=== PATIENT | female | born 1995 | race Caucasian/White ===

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

== ENCOUNTER 2017-01-02 14:06 | Emergency (ER) | payer OTHER ==
[~2017-01-02] VITALS: Ht 162.6 cm; Wt 72.3 kg
[~2017-01-02 14:06] MED LIST changes: +PROAIR HFA0.09 MG/AC IH; +RT SPIRIVA18 MCG IH; +ZITHROMAX 250M250 MG PO
[2017-01-02 14:09] VITALS: TEMP 98.4
[2017-01-02] MEDS ORDERED: PREDNISONE20 MG PO ×2 (16:22→16:40)
[2017-01-02 16:41] VITALS: BP 113/70; PULSE 115
== END 2017-01-02 16:42 | disposition home or self-care (01) ==
LOC: COL.ER 14:06
DX: J45.901 Unspecified asthma with (acute) exacerbation (principal)
CPT/HCPCS: J7512

== ENCOUNTER 2017-01-18 15:29 | Emergency (ER) | payer OTHER ==
[~2017-01-18] VITALS: Ht 160 cm; Wt 77.3 kg
[2017-01-18 15:33] VITALS: TEMP 97.9
[2017-01-18] MEDS ORDERED: BENADRYL25 M2 PO (15:39)
[2017-01-18 16:07] LABS: BASO # 0.1 (0.0-0.2); BASO % 0.4 % (0.0-2.0); EOS # 0.7 (0.0-0.7); EOS % 4.9 % (0-4.0); GRAN # 9.9 (1.4-6.5); GRAN % 70.6 % (42.2-75.2); HEMATOCRIT 40.4 % (35.0-45.0); HEMOGLOBIN 13.2 g/dl (12.0-15.0); LYMPH # 2.1 (1.2-3.4); LYMPH % 14.8 % (20.0-51.0); MEAN CELL VOLUME 82 fl (80.0-95.0); MEAN CORPUSCULAR HEMOGLOBIN 27 pg (26.0-32.0); MEAN CORPUSCULAR HGB CONC 33 g/dl (33.0-37.0); MEAN PLATELET VOLUME 10.4 fl (7.4-10.4); MONO # 1.3 (0.1-0.6); MONO % 8.9 % (1.7-9.3); PLATELET COUNT 229 K/mm3 (130-400); RED BLOOD COUNT 4.92 M/mm3 (4.10-5.30); REDCELL DISTRIBUTION WIDTH-CV 15.3 % (11.5-14.5)
[2017-01-18 16:16] LABS: ADJUSTED CALCIUM 9.4 mg/dL (8.4-10.2); ALBUMIN 3.9 gm/dL (3.5-5.0); CALCIUM 9.3 mg/dL (8.4-10.2); CREATININE, serum 0.71 mg/dL (0.52-1.25); TOTAL PROTEIN 6.4 gm/dL (6.4-8.2)
[2017-01-18 17:00] LABS: PH 5 (5-8); SQUAMOUS EPITHELIAL 0-2 /hpf; URINE APPEARANCE Clear; URINE BACTERIA Rare /hpf; URINE BILIRUBIN Negative (NEGATIVE); URINE BLOOD Negative (NEGATIVE); URINE COLOR Yellow; URINE GLUCOSE Negative (NEGATIVE); URINE KETONE Negative (NEGATIVE); URINE RBC 0-2 /hpf; URINE UROBILINOGEN Negative (NEGATIVE); URINE WBC 0-2 /hpf
[2017-01-18] MEDS ORDERED: ZITHROMAX500 M2 PO (19:20)
[2017-01-18] MEDS ORDERED: PREDNISONE20 MG PO (19:20)
[2017-01-18 19:30] VITALS: BP 121/68; PULSE 119
== END 2017-01-18 19:34 | disposition home or self-care (01) ==
LOC: COL.ER 15:29
PROVIDERS: Emergency Medicine
DX: J45.901 Unspecified asthma with (acute) exacerbation (principal); J18.9 Pneumonia, unspecified organism; Z87.891 Personal history of nicotine dependence
CPT/HCPCS: G0463; J0696; J2930; J3105; J3475; J7030

== ENCOUNTER 2017-01-24 08:45 | Inpatient (IN) | payer OTHER ==
[~2017-01-24] VITALS: Ht 162.6 cm; Wt 79.6 kg
[~2017-01-24 08:45] MED LIST changes: +BENADRYL25 M2 PO; +ZITHROMAX500 M2 PO
[2017-01-24 09:45] LABS: BASO # 0.1 (0.0-0.2); BASO % 0.4 % (0.0-2.0); EOS # 1.2 (0.0-0.7); GRAN # 11.5 (1.4-6.5); GRAN % 67.3 % (42.2-75.2); HEMATOCRIT 43.4 % (35.0-45.0); HEMOGLOBIN 14.4 g/dl (12.0-15.0); LYMPH % 17.7 % (20.0-51.0); MEAN CELL VOLUME 82 fl (80.0-95.0); MEAN CORPUSCULAR HEMOGLOBIN 27 pg (26.0-32.0); MEAN CORPUSCULAR HGB CONC 33 g/dl (33.0-37.0); MEAN PLATELET VOLUME 10.5 fl (7.4-10.4); MONO # 1.2 (0.1-0.6); MONO % 7.2 % (1.7-9.3); PLATELET COUNT 292 K/mm3 (130-400); RED BLOOD COUNT 5.27 M/mm3 (4.10-5.30); REDCELL DISTRIBUTION WIDTH-CV 15.1 % (11.5-14.5); WHITE BLOOD COUNT 17.2 K/mm3 (4.8-10.8)
[2017-01-24 09:55] LABS: ADJUSTED CALCIUM 9.3 mg/dL (8.4-10.2); ALBUMIN 4.2 gm/dL (3.5-5.0); BILIRUBIN,TOTAL 0.9 mg/dL (0.0-1.0); CALCIUM 9.5 mg/dL (8.4-10.2); CREATININE, serum 0.73 mg/dL (0.52-1.25); POTASSIUM 4.4 mmol/L (3.4-5.0); TOTAL PROTEIN 7.2 gm/dL (6.4-8.2)
[2017-01-24] MEDS ORDERED: PRILOSEC10 MG PO (12:21)
[2017-01-24 13:40] VITALS: BP 116/60; PULSE 104; TEMP 98
[2017-01-24 16:00] VITALS: BP 121/50; PULSE 110; TEMP 98.6
[2017-01-24 19:56] VITALS: BP 136/64; PULSE 122; TEMP 98.4
[2017-01-25] VITALS (7 sets, daily range): BP systolic 103–131; BP diastolic 44–64; PULSE 103–131; TEMP 97–98.3
[2017-01-25 06:47] LABS: HEMATOCRIT 39.6 % (35.0-45.0); HEMOGLOBIN 13.2 g/dl (12.0-15.0); MEAN CELL VOLUME 82 fl (80.0-95.0); MEAN CORPUSCULAR HEMOGLOBIN 27 pg (26.0-32.0); MEAN CORPUSCULAR HGB CONC 33 g/dl (33.0-37.0); MEAN PLATELET VOLUME 10.9 fl (7.4-10.4); PLATELET COUNT 257 K/mm3 (130-400); RED BLOOD COUNT 4.85 M/mm3 (4.10-5.30); WHITE BLOOD COUNT 15.2 K/mm3 (4.8-10.8)
[2017-01-25 06:49] LABS: ADD PATHOLOGY DIFF REVIEW NO
[2017-01-25 06:56] LABS: CALCIUM 9.7 mg/dL (8.4-10.2); CREATININE, serum 0.55 mg/dL (0.52-1.25)
[2017-01-25 07:10] LABS: BAND 6 % (0-10); NEUTROPHILS 86 % (42.0-75.2); PLATELET ESTIMATE NORMAL (NORMAL); TOTAL CELLS COUNTED 100
[2017-01-26 03:33] VITALS: BP 118/52; PULSE 110; TEMP 97.9
[2017-01-26 07:44] VITALS: BP 116/40; PULSE 123; TEMP 97.9
[2017-01-26 10:58] VITALS: BP 123/52; PULSE 128; TEMP 98.3
[2017-01-26] MEDS ORDERED: CLARITIN 1010 MG/TAB PO (14:06)
[2017-01-26] MEDS ORDERED: PREDNISONE20 MG PO (14:26)
[2017-01-26 16:59] VITALS: BP 123/52; PULSE 128; TEMP 98.3
== END 2017-01-26 15:30 | disposition home or self-care (01) | DRG 195 ==
LOC: COL.ER 08:45 → MEDICAL 11:14
PROVIDERS: Emergency Medicine; Physician Assistant
DX: J18.9 Pneumonia, unspecified organism (principal); R09.02 Hypoxemia; F41.9 Anxiety disorder, unspecified; Z87.891 Personal history of nicotine dependence
CPT/HCPCS: 99223-AI; 99232-AI; 99239; J1650; J2920; J2930; J3475; J7030

== ENCOUNTER 2017-05-10 13:47 | Inpatient (IN) | payer OTHER ==
[2017-05-10] VITALS (475 sets, daily range): BP systolic 124–196; BP diastolic 66–100; PULSE 113–158; TEMP 98–99.4; O2SAT 75–100
[~2017-05-10] VITALS: Ht 160 cm; Wt 88.5 kg
[~2017-05-10 13:47] MED LIST changes: +CLARITIN 1010 MG/TAB PO; +PRILOSEC10 MG PO
[2017-05-10] MEDS ORDERED: ZYRTEC 10MG10 MG PO (16:15)
[2017-05-10] MEDS ORDERED: IPRATROPIUM BROM3 M1 IH (16:16)
[2017-05-10] MEDS ORDERED: CELEXA 20MG20 MG/TAB PO (16:17)
[2017-05-10] MEDS ORDERED: ZANTAC 150MG T150 MG PO (16:18)
[2017-05-10] MEDS ORDERED: ZITHROMAX 250M250 MG PO (16:19)
[2017-05-10 17:07] LABS: INFLUENZA A NEGATIVE; INFLUENZA B NEGATIVE
[2017-05-10 17:42] LABS: ARTERIAL BLD GAS O2 SATURATION 86.8 % (92-100); ARTERIAL BLOOD GAS HCO3 18.1 meq/L (22-26); ARTERIAL BLOOD GAS PHT 7.41 C (7.35-7.45); ARTERIAL BLOOD GAS pH 7.41 (7.35-7.45); OXYHEMOGLOBIN 86.3 %
[2017-05-10 17:43] LABS: ATS? YES
[2017-05-10 22:28] LABS: ARTERIAL BLD GAS O2 SATURATION 96.9 % (92-100); ARTERIAL BLOOD GAS BASE EXCESS -6.5 (-2-2); ARTERIAL BLOOD GAS HCO3 21.4 meq/L (22-26); ARTERIAL BLOOD GAS PO2 107.7 mmHg (80-100); ARTERIAL BLOOD GAS pH 7.23 (7.35-7.45); OXYHEMOGLOBIN 95.9 %
[2017-05-10 22:29] LABS: ABG VENTILATOR TIDAL VOLUME 450 mL; ATS? NO
[2017-05-10 22:30] LABS: HEMATOCRIT 39.3 % (35.0-45.0); HEMOGLOBIN 13.1 g/dl (12.0-15.0); MEAN CELL VOLUME 84 fl (80.0-95.0); MEAN CORPUSCULAR HEMOGLOBIN 28 pg (26.0-32.0); MEAN CORPUSCULAR HGB CONC 33 g/dl (33.0-37.0); PLATELET COUNT 228 K/mm3 (130-400); RED BLOOD COUNT 4.66 M/mm3 (4.10-5.30)
[2017-05-10 22:33] LABS: ADD PATHOLOGY DIFF REVIEW NO; WHITE BLOOD COUNT 21.8 K/mm3 (4.8-10.8)
[2017-05-10 22:44] LABS: ALBUMIN 4.1 gm/dL (3.5-5.0); BILIRUBIN,TOTAL 0.5 mg/dL (0.0-1.0); CALCIUM 9.1 mg/dL (8.4-10.2); CREATININE, serum 0.66 mg/dL (0.52-1.25); MAGNESIUM 1.9 mg/dL (1.6-2.3); POTASSIUM 4.9 mmol/L (3.4-5.0); TOTAL PROTEIN 6.9 gm/dL (6.4-8.2)
[2017-05-10 22:51] LABS: INR 1.1 (0.8-3.0); PROTHROMBIN TIME 12.1 SECONDS (9.7-12.8)
[2017-05-10 22:56] LABS: BAND 8 % (0-10); LYMPHOCYTE 4 % (20.0-51.0); NEUTROPHILS 85 % (42.0-75.2); TOTAL CELLS COUNTED 100
[2017-05-10 22:57] LABS: PLATELET ESTIMATE NORMAL (NORMAL)
[2017-05-11] VITALS (1381 sets, daily range): BP systolic 112–139; BP diastolic 61–96; PULSE 91–120; TEMP 97–98.9; O2SAT 86–99
[2017-05-11 01:08] LABS: COLLECTION METHOD CLEAN CATCH
[2017-05-11 01:12] LABS: ABG VENTILATOR TIDAL VOLUME 450 mL; ARTERIAL BLD GAS O2 SATURATION 96.8 % (92-100); ARTERIAL BLD GAS TCO2 CT 19.3; ARTERIAL BLOOD GAS BASE EXCESS -8.8 (-2-2); ARTERIAL BLOOD GAS PO2 105.2 mmHg (80-100); ARTERIAL BLOOD GAS pH 7.25 (7.35-7.45); ATS? NO; OXYHEMOGLOBIN 95.8 %
[2017-05-11 01:15] LABS: AMORPHOUS CRYSTAL Present /uL; HYALINE CAST >12 /lpf; MUCOUS Present /lpf; PH 5 (5-8); URINE APPEARANCE Turbid; URINE BACTERIA None Seen /hpf; URINE BILIRUBIN Negative (NEGATIVE); URINE BLOOD Negative (NEGATIVE); URINE COLOR Yellow; URINE GLUCOSE 1+ (NEGATIVE); URINE KETONE Trace (NEGATIVE); URINE LEUKOCYTE ESTERASE Negative (NEGATIVE); URINE PROTEIN(semi-quant) 2+ (NEGATIVE); URINE UROBILINOGEN Negative (NEGATIVE); URINE WBC 0-2 /hpf
[2017-05-11 03:14] LABS: HEMATOCRIT 38.9 % (35.0-45.0); HEMOGLOBIN 12.5 g/dl (12.0-15.0); MEAN CELL VOLUME 86 fl (80.0-95.0); MEAN CORPUSCULAR HEMOGLOBIN 28 pg (26.0-32.0); MEAN CORPUSCULAR HGB CONC 32 g/dl (33.0-37.0); MEAN PLATELET VOLUME 10.8 fl (7.4-10.4); PLATELET COUNT 223 K/mm3 (130-400); RED BLOOD COUNT 4.55 M/mm3 (4.10-5.30); WHITE BLOOD COUNT 19.7 K/mm3 (4.8-10.8)
[2017-05-11 03:20] LABS: ADD PATHOLOGY DIFF REVIEW NO
[2017-05-11 03:25] LABS: CREATININE, serum 0.69 mg/dL (0.52-1.25); PHOSPHOROUS 3.8 mg/dL (2.5-4.5); POTASSIUM 4.7 mmol/L (3.4-5.0)
[2017-05-11 03:34] LABS: ARTERIAL BLD GAS O2 SATURATION 95.4 % (92-100); ARTERIAL BLD GAS TCO2 CT 20.4; ARTERIAL BLOOD GAS HCO3 19.1 meq/L (22-26); ARTERIAL BLOOD GAS PO2 83.9 mmHg (80-100); ARTERIAL BLOOD GAS pH 7.29 (7.35-7.45); ATS? NO; OXYHEMOGLOBIN 94.6 %
[2017-05-11 03:35] LABS: ABG VENTILATOR TIDAL VOLUME 400 mL
[2017-05-11 03:41] LABS: ANISOCYTOSIS 1+; BAND 17 % (0-10); LYMPHOCYTE 1 % (20.0-51.0); NEUTROPHILS 79 % (42.0-75.2); PLATELET ESTIMATE NORMAL (NORMAL); TOTAL CELLS COUNTED 100
[2017-05-11 05:32] LABS: ARTERIAL BLD GAS O2 SATURATION 94.5 % (92-100); ARTERIAL BLD GAS TCO2 CT 19.1; ARTERIAL BLOOD GAS PO2 80.4 mmHg (80-100); ARTERIAL BLOOD GAS pH 7.29 (7.35-7.45); OXYHEMOGLOBIN 93.6 %
[2017-05-11 05:33] LABS: ABG VENTILATOR TIDAL VOLUME 400 mL; ATS? NO
[2017-05-11 12:38] LABS: AMPHETAMINE URINE NEGATIVE; BARBITURATES URINE NEGATIVE; BENZODIAZEPINES URINE POSITIVE; BUPRENORPHINE URINE NEGATIVE; METHADONE URINE NEGATIVE; OPIATES URINE NEGATIVE; OXYCODONE URINE NEGATIVE; PHENCYCLIDINE URINE NEGATIVE; PROPOXYPHENE URINE NEGATIVE; THC CANNABINOIDS URINE NEGATIVE; TRICYCLIC ANTIDEPRESS URINE NEGATIVE
[2017-05-11 17:34] LABS: ARTERIAL BLD GAS O2 SATURATION 98.3 % (92-100); ARTERIAL BLOOD GAS BASE EXCESS -4.4 (-2-2); ARTERIAL BLOOD GAS HCO3 19.9 meq/L (22-26); ARTERIAL BLOOD GAS PO2 135.5 mmHg (80-100); ARTERIAL BLOOD GAS pH 7.39 (7.35-7.45); OXYHEMOGLOBIN 97.3 %
[2017-05-11 17:35] LABS: ALLEN TEST NO; ATS? NO
[2017-05-11 17:36] LABS: ABG VENTILATOR TIDAL VOLUME 450 mL
[2017-05-12] VITALS (1315 sets, daily range): BP systolic 109–168; BP diastolic 64–98; PULSE 74–138; TEMP 97.4–98.9; O2SAT 78–99
[2017-05-12 05:30] LABS: ARTERIAL BLD GAS O2 SATURATION 97.6 % (92-100); ARTERIAL BLD GAS TCO2 CT 22.9; ARTERIAL BLOOD GAS BASE EXCESS -0.9 (-2-2); ARTERIAL BLOOD GAS PO2 99.5 mmHg (80-100); ARTERIAL BLOOD GAS pH 7.48 (7.35-7.45); OXYHEMOGLOBIN 96.6 %
[2017-05-12 05:31] LABS: ABG VENTILATOR TIDAL VOLUME 450 mL; ATS? NO
[2017-05-12 05:43] LABS: BASO % 0.1 % (0.0-2.0); GRAN # 11.2 (1.4-6.5); GRAN % 90.3 % (42.2-75.2); LYMPH # 0.5 (1.2-3.4); LYMPH % 4.2 % (20.0-51.0); MEAN CELL VOLUME 86 fl (80.0-95.0); MEAN CORPUSCULAR HGB CONC 32 g/dl (33.0-37.0); MEAN PLATELET VOLUME 11.3 fl (7.4-10.4); MONO # 0.6 (0.1-0.6); MONO % 4.8 % (1.7-9.3); PLATELET COUNT 176 K/mm3 (130-400); WHITE BLOOD COUNT 12.4 K/mm3 (4.8-10.8)
[2017-05-12 05:45] LABS: HEMATOCRIT 32.6 % (35.0-45.0); HEMOGLOBIN 10.5 g/dl (12.0-15.0); MEAN CORPUSCULAR HEMOGLOBIN 28 pg (26.0-32.0)
[2017-05-12 05:54] LABS: CREATININE, serum 0.57 mg/dL (0.52-1.25); MAGNESIUM 2.3 mg/dL (1.6-2.3); PHOSPHOROUS 1.9 mg/dL (2.5-4.5); POTASSIUM 3.8 mmol/L (3.4-5.0)
[2017-05-12 13:55] LABS: ARTERIAL BLD GAS TCO2 CT 23.6; ARTERIAL BLOOD GAS BASE EXCESS -0.9 (-2-2); ARTERIAL BLOOD GAS HCO3 22.6 meq/L (22-26); ARTERIAL BLOOD GAS PHT 7.45 C (7.35-7.45); ARTERIAL BLOOD GAS pH 7.45 (7.35-7.45)
[2017-05-12 13:56] LABS: ATS? NO
[2017-05-13] VITALS (1357 sets, daily range): BP systolic 112–143; BP diastolic 68–96; PULSE 67–101; TEMP 97.7–99.3; O2SAT 82–100
[2017-05-13 04:42] LABS: ARTERIAL BLD GAS O2 SATURATION 96.5 % (92-100); ARTERIAL BLD GAS TCO2 CT 22.8; ARTERIAL BLOOD GAS BASE EXCESS -1.7 (-2-2); ARTERIAL BLOOD GAS HCO3 21.8 meq/L (22-26); ARTERIAL BLOOD GAS PHT 7.44 C (7.35-7.45); ARTERIAL BLOOD GAS PO2 90.9 mmHg (80-100); ARTERIAL BLOOD GAS PO2T 90.9 (80-100); ARTERIAL BLOOD GAS pH 7.44 (7.35-7.45); OXYHEMOGLOBIN 95.7 %
[2017-05-13 04:45] LABS: ATS? NO
[2017-05-13 05:56] LABS: BASO % 0.1 % (0.0-2.0); GRAN # 10.5 (1.4-6.5); GRAN % 88.4 % (42.2-75.2); LYMPH # 0.6 (1.2-3.4); MEAN CELL VOLUME 86 fl (80.0-95.0); MEAN CORPUSCULAR HGB CONC 32 g/dl (33.0-37.0); MONO # 0.7 (0.1-0.6); PLATELET COUNT 186 K/mm3 (130-400); WHITE BLOOD COUNT 11.9 K/mm3 (4.8-10.8)
[2017-05-13 06:06] LABS: HEMATOCRIT 32.8 % (35.0-45.0); HEMOGLOBIN 10.5 g/dl (12.0-15.0); MEAN CORPUSCULAR HEMOGLOBIN 28 pg (26.0-32.0)
[2017-05-13 06:07] LABS: CALCIUM 8.8 mg/dL (8.4-10.2); CREATININE, serum 0.6 mg/dL (0.52-1.25); MAGNESIUM 2.4 mg/dL (1.6-2.3); PHOSPHOROUS 2.8 mg/dL (2.5-4.5); POTASSIUM 3.9 mmol/L (3.4-5.0)
[2017-05-13 11:50] LABS: ARTERIAL BLD GAS O2 SATURATION 95.6 % (92-100); ARTERIAL BLD GAS TCO2 CT 25.1; ARTERIAL BLOOD GAS BASE EXCESS 0.4 (-2-2); ARTERIAL BLOOD GAS PHT 7.45 C (7.35-7.45); ARTERIAL BLOOD GAS PO2 79.3 mmHg (80-100); ARTERIAL BLOOD GAS PO2T 79.3 (80-100); ARTERIAL BLOOD GAS pH 7.45 (7.35-7.45); OXYHEMOGLOBIN 94.7 %
[2017-05-13 11:51] LABS: ATS? YES
[2017-05-14] VITALS (623 sets, daily range): BP systolic 121–157; BP diastolic 54–96; PULSE 51–98; TEMP 97.2–99; O2SAT 72–100
[2017-05-14 06:27] LABS: CALCIUM 9.1 mg/dL (8.4-10.2); CREATININE, serum 0.53 mg/dL (0.52-1.25); MAGNESIUM 2.3 mg/dL (1.6-2.3); POTASSIUM 3.9 mmol/L (3.4-5.0)
[2017-05-15 01:06] VITALS: BP 106/61; PULSE 56; TEMP 98.1
[2017-05-15 04:06] VITALS: BP 120/51; PULSE 54; TEMP 97.7
[2017-05-15 08:05] VITALS: BP 111/61; PULSE 71; TEMP 98.3
[2017-05-15 12:13] VITALS: BP 142/97; BP 154/97; PULSE 62; PULSE 66; TEMP 98.5
[2017-05-15] MEDS ORDERED: PREDNISONE10 MG PO (13:47)
== END 2017-05-15 15:05 | disposition home or self-care (01) | DRG 208 ==
LOC: ICU 13:47 → MEDICAL 05-14 14:00
PROVIDERS: Internal Medicine; Internal Medicine Pulmonary Disease; Nurse Practitioner Family
PROC: 0BH17EZ Insertion of Endotracheal Airway into Trachea, Via Natural or Artificial Opening (ICD-10-PCS; principal; 2017-05-10)
PROC: 5A1945Z Respiratory Ventilation, 24-96 Consecutive Hours (ICD-10-PCS; 2017-05-10)
PROC: 0W9930Z Drainage of Right Pleural Cavity with Drainage Device, Percutaneous Approach (ICD-10-PCS; 2017-05-10)
DX: J96.01 Acute respiratory failure with hypoxia (principal); J45.901 Unspecified asthma with (acute) exacerbation; F05 Delirium due to known physiological condition; J93.83 Other pneumothorax; F41.8 Other specified anxiety disorders; Z77.22 Contact with and (suspected) exposure to environmental tobacco smoke (acute) (chronic); B97.89 Other viral agents as the cause of diseases classified elsewhere
CPT/HCPCS: 90791-AI; 99223-AI; 99233-AI; 99239; C9113; J0456; J1644; J1650; J1940; J2060; J2250; J2270; J2704; J2920; J3010; J7030; J7050; J7120

== ENCOUNTER 2017-08-31 05:44 | Emergency (ER) | payer SELFPAY ==
[~2017-08-31] VITALS: Ht 162.6 cm; Wt 79.5 kg
[2017-08-31 05:50] VITALS: BP 113/77; PULSE 137; TEMP 97.3
[2017-08-31] MEDS ORDERED: PREDNISONE20 MG PO (06:55)
== END 2017-08-31 07:00 | disposition home or self-care (01) ==
LOC: COL.ER 05:44
DX: J45.901 Unspecified asthma with (acute) exacerbation (principal); F30.9 Manic episode, unspecified
CPT/HCPCS: J7512

== ENCOUNTER → 2017-08-31 | Outpatient (CLI) | payer SELFPAY ==
[~2017-08-31] MED LIST changes: +CELEXA 20MG20 MG/TAB PO; +IPRATROPIUM BROM3 M1 IH; +ZANTAC 150MG T150 MG PO
== END ==
LOC: LDRO 05:31
DX: Z04.41 Encounter for examination and observation following alleged adult rape (principal)
CPT/HCPCS: J0696

== ENCOUNTER → 2017-08-31 | Outpatient (REF) | LOC: LDRO 05:33 | DX: Z01.89 Encounter for other specified special examinations (principal) ==

== ENCOUNTER 2021-06-26 17:38 | Emergency (ER) | payer MEDICAID ==
[~2021-06-26] VITALS: Ht 162.6 cm; Wt 54.5 kg
[2021-06-26 18:17] VITALS: TEMP 98.2
[2021-06-26 20:08] VITALS: BP 110/78; PULSE 96
== END 2021-06-26 20:08 | disposition home or self-care (01) ==
LOC: COL.ER 17:38
DX: U07.1 COVID-19 (principal); J45.909 Unspecified asthma, uncomplicated; Z79.899 Other long term (current) drug therapy; Z79.52 Long term (current) use of systemic steroids

== ENCOUNTER 2021-10-22 15:33 | Emergency (ER) | payer MEDICAID ==
[~2021-10-22] VITALS: Ht 160 cm; Wt 60.9 kg
[2021-10-22 15:50] LABS: BASO # 0.1 K/mm3 (0.0-0.2); BASO % 0.4 % (0.0-2.0); EOS # 0.8 K/mm3 (0.0-0.7); GRAN # 10.1 K/mm3 (1.4-6.5); GRAN % 75.2 % (42.2-75.2); HEMATOCRIT 41.6 % (37.0-47.0); HEMOGLOBIN 14.1 g/dl (12.5-16.0); LYMPH # 1.3 K/mm3 (1.2-3.4); LYMPH % 9.8 % (20.0-51.0); MEAN CELL VOLUME 81 fl (80.0-100.0); MEAN CORPUSCULAR HEMOGLOBIN 27 pg (27-31); MEAN CORPUSCULAR HGB CONC 34 g/dl (33.0-37.0); MONO # 1.1 K/mm3 (0.1-0.6); MONO % 8.4 % (1.7-9.3); PLATELET COUNT 220 K/mm3 (130-400); RED BLOOD COUNT 5.16 M/mm3 (4.10-5.30); REDCELL DISTRIBUTION WIDTH-CV 14.4 % (11.5-14.5)
[2021-10-22 16:06] LABS: ALANINE AMINOTRANSFERASE 9 U/L (0-55); ALBUMIN 4.2 gm/dL (3.5-5.0); ALKALINE PHOSPHATASE 53 U/L (40-150); ANION GAP 12 mmol/L (7-16); AST,SGOT 15 U/L (5-34); BILIRUBIN,TOTAL 0.8 mg/dL (0.2-1.2); BLOOD UREA NITROGEN 13 mg/dL (7-19); CARBON DIOXIDE 17 mmol/L (22-29); CHLORIDE 113 mmol/L (98-107); CREATININE, serum 0.82 mg/dL (0.57-1.11); GLUCOSE 98 mg/dL (70-99); POTASSIUM 4.2 mmol/L (3.5-4.5); SODIUM 142 mmol/L (136-145); TOTAL PROTEIN 6.8 gm/dL (6.2-8.1)
[2021-10-22 16:14] LABS: TROPONIN-I < 0.010 ng/mL (0.00-0.033)
[2021-10-22 16:31] VITALS: TEMP 97.2
[2021-10-22 20:35] VITALS: BP 112/60; PULSE 130
== END 2021-10-22 20:35 | disposition short-term general hospital (02) ==
LOC: COL.ER 15:33
PROVIDERS: Emergency Medicine
DX: J45.902 Unspecified asthma with status asthmaticus (principal); F17.290 Nicotine dependence, other tobacco product, uncomplicated; Z20.822 Contact with and (suspected) exposure to COVID-19; Z91.040 Latex allergy status
CPT/HCPCS: J0330; J1885; J2060; J2250; J2704; J3010; J3475; J7120; Q9967

== ENCOUNTER 2021-11-22 11:35 | Observation (INO) | payer MEDICAID ==
[2021-11-22] MEDS ORDERED: PROVENTIL0.09 MG/A1 IH (12:23)
[2021-11-22] MEDS ORDERED: SINGULAIR 110 MG/TAB PO (12:28)
[2021-11-22] MEDS ORDERED: ZOLOFT 50MG50 MG PO (12:29)
[2021-11-22 12:30] VITALS: BP 122/71; PULSE 111; TEMP 98.2
[2021-11-22] MEDS ORDERED: RT SPIRIVA18 MCG IH (12:30)
--- NOTE | 2021-11-22 12:30 | NUR ---
THE PATIENT ARRIVED FROM [facility] ER ON 2L O2 SATURATING AT 97% REDUCED HER TO 1L TO WHICH SHE IS SATURATING 95%. MEDICATION RECONCILLIATION IS COMPLETED AND CALLED THE PHYSICIAN TO NOTIFY OF ARRIVAL. THE PATIENT STATES THAT SHE FEELS MUCH BETTER AFTER SHE COUGHED UP A CHUNK OF PHLEGM. NO OTHER CONCERNS.
[2021-11-22] MEDS ORDERED: BENADRYL25 M2 PO (12:31)
[2021-11-22] MEDS ORDERED: MOTRIN 600600 MG/TAB PO (12:35)
[2021-11-22] MEDS ORDERED: TYLENOL 325MG325 MG PO (12:36)
[2021-11-22] MEDS ORDERED: PREDNISONE20 MG PO (14:35)
== END 2021-11-22 16:30 | disposition home or self-care (01) ==
LOC: MEDICAL 12:01
PROVIDERS: ADMIT Student in an Organized Health Care Education/Training Program
DX: J45.901 Unspecified asthma with (acute) exacerbation (principal); R09.02 Hypoxemia; R00.0 Tachycardia, unspecified; Z79.899 Other long term (current) drug therapy
CPT/HCPCS: G0378

== ENCOUNTER 2023-06-29 00:57 | Emergency (ER) | payer MEDICAID ==
[~2023-06-29] VITALS: Ht 152.4 cm; Wt 68.2 kg
[~2023-06-29 00:57] MED LIST changes: +DULERA1 AR1 IH; +LATUDA40 MG PO; +LEXAPRO 10MG10 MG PO; +LEXAPRO 5MG5 MG PO; +MOTRIN 600600 MG/TAB PO; +MOTRIN 800800 MG/TAB PO; +NATURAL IRON65 MG PO; +OXYGEN; +PERCOCET 325 MG1 TA2 PO; +PROVENTIL0.09 MG/A1 IH; +TAMIFLU30 MG PO; +TYLENOL 325MG325 MG PO; +ZOLOFT 50MG50 MG PO
[2023-06-29 00:59] VITALS: TEMP 97.9
[2023-06-29] MEDS ORDERED: Magnesium Sulfate 4% 50 ML IV ONE (01:15)
[2023-06-29] MEDS ORDERED: Ondansetron 4 MG/2 ML VIAL IV ONE (01:21)
[2023-06-29 01:38] LABS: BASO % 0.2 % (0.0-2.0); EOS % 0.1 % (0.0-4.0); GRAN # 5.5 K/mm3 (1.4-6.5); GRAN % 68.1 % (42.2-75.2); HEMATOCRIT 39.5 % (37.0-47.0); HEMOGLOBIN 12.9 g/dl (12.5-16.0); LYMPH # 1.7 K/mm3 (1.2-3.4); LYMPH % 21.2 % (20.0-51.0); MEAN CELL VOLUME 83 fl (80.0-100.0); MEAN CORPUSCULAR HEMOGLOBIN 27 pg (27-31); MEAN CORPUSCULAR HGB CONC 33 g/dl (33.0-37.0); MEAN PLATELET VOLUME 10.6 fl (7.4-10.4); MONO # 0.8 K/mm3 (0.1-0.6); MONO % 9.5 % (1.7-9.3); PLATELET COUNT 243 K/mm3 (130-400); RED BLOOD COUNT 4.74 M/mm3 (4.10-5.30); REDCELL DISTRIBUTION WIDTH-CV 15.3 % (11.5-14.5)
[2023-06-29 01:57] LABS: ALBUMIN 3.7 gm/dL (3.5-5.0); BILIRUBIN,TOTAL 0.4 mg/dL (0.2-1.2); CALCIUM 9.1 mg/dL (8.4-10.2); CREATININE, serum 0.73 mg/dL (0.57-1.11); POTASSIUM 3.9 mmol/L (3.5-4.5); TOTAL PROTEIN 6.4 gm/dL (6.2-8.1)
[2023-06-29 01:59] LABS: INR 0.9 (0.8-3.0); PROTHROMBIN TIME 10.1 SECONDS (9.7-12.8)
[2023-06-29] MEDS ORDERED: Albuterol 0.083% Neb Soln 2.5 MG/3 ML UD IH ONE (02:00)
[2023-06-29 02:02] LABS: PARTIAL THROMBOPLASTIN TIME 27.3 SECONDS (26.0-37.0)
[2023-06-29 02:05] LABS: COLLECTION METHOD CLEAN CATCH
[2023-06-29 02:27] LABS: SQUAMOUS EPITHELIAL 0-2 /hpf (0-10); URINE APPEARANCE Clear (CLEAR/HAZY); URINE BLOOD Negative (NEGATIVE); URINE COLOR Yellow (YELLOW); URINE GLUCOSE Negative (NEGATIVE); URINE KETONE Negative (NEGATIVE); URINE NITRATE Negative (NEGATIVE); URINE PROTEIN(semi-quant) Negative (NEGATIVE); URINE RBC None Seen /hpf (0-2); URINE UROBILINOGEN 0.2 E.U/dL (0.2-1.0)
[2023-06-29 02:28] LABS: MUCOUS Present (NOT PRESENT); URINE BACTERIA None Seen /hpf (NONE SEEN)
[2023-06-29 03:18] VITALS: BP 129/89; PULSE 113
== END 2023-06-29 03:15 | disposition left against medical advice (07) ==
LOC: COL.ER 00:57
PROVIDERS: Emergency Medicine
DX: J45.901 Unspecified asthma with (acute) exacerbation (principal); Z91.040 Latex allergy status
CPT/HCPCS: A4614; J2405; J3475

== ENCOUNTER 2023-07-27 15:42 | Emergency (ER) | payer MEDICAID ==
[~2023-07-27] VITALS: Ht 162.6 cm; Wt 72.7 kg
[2023-07-27] MEDS ORDERED: Albuterol/Ipratropium 3 MG-0.5 MG/3 ML Neb Soln IH SCH (16:00)
[2023-07-27] MEDS ORDERED: predniSONE 20 MG TAB PO ONE (16:00)
[2023-07-27] MEDS ORDERED: PREDNISONE20 MG PO (17:24)
[2023-07-27 17:30] VITALS: BP 109/41; PULSE 108; TEMP 98.5
== END 2023-07-27 17:30 | disposition home or self-care (01) ==
LOC: COL.ER 15:42
DX: J45.901 Unspecified asthma with (acute) exacerbation (principal); R00.0 Tachycardia, unspecified; Z91.040 Latex allergy status; Z79.899 Other long term (current) drug therapy
CPT/HCPCS: J7512

== ENCOUNTER 2023-08-08 12:58 | Emergency (ER) | payer MEDICAID ==
[~2023-08-08] VITALS: Ht 162.6 cm; Wt 68.2 kg
[2023-08-08 13:01] VITALS: TEMP 98.1
[2023-08-08] MEDS ORDERED: Albuterol/Ipratropium 3 MG-0.5 MG/3 ML Neb Soln IH ONE (13:15)
[2023-08-08] MEDS ORDERED: dexAMETHasone 10 MG/ML VIAL IV ONE (13:30)
[2023-08-08] MEDS ORDERED: NS 1,000 ML IV ONE (13:30)
[2023-08-08] MEDS ORDERED: Albuterol 0.083% Neb Soln 2.5 MG/3 ML UD IH SCH (13:30)
[2023-08-08 13:51] LABS: BASO # 0.1 K/mm3 (0.0-0.2); BASO % 0.4 % (0.0-2.0); EOS # 0.6 K/mm3 (0.0-0.7); EOS % 3.6 % (0.0-4.0); GRAN % 68.9 % (42.2-75.2); HEMATOCRIT 42.6 % (37.0-47.0); HEMOGLOBIN 13.7 g/dl (12.5-16.0); LYMPH % 18.6 % (20.0-51.0); MEAN CELL VOLUME 84 fl (80.0-100.0); MEAN CORPUSCULAR HEMOGLOBIN 27 pg (27-31); MEAN CORPUSCULAR HGB CONC 32 g/dl (33.0-37.0); MEAN PLATELET VOLUME 10.4 fl (7.4-10.4); MONO # 1.1 K/mm3 (0.1-0.6); MONO % 7.1 % (1.7-9.3); PLATELET COUNT 322 K/mm3 (130-400); RED BLOOD COUNT 5.07 M/mm3 (4.10-5.30); REDCELL DISTRIBUTION WIDTH-CV 14.4 % (11.5-14.5)
[2023-08-08 14:03] LABS: BILIRUBIN,TOTAL 0.5 mg/dL (0.2-1.2); CALCIUM 10.1 mg/dL (8.4-10.2); CREATININE, serum 0.78 mg/dL (0.57-1.11); POTASSIUM 4.3 mmol/L (3.5-4.5); TOTAL PROTEIN 7.1 gm/dL (6.2-8.1)
[2023-08-08 14:26] LABS: COLLECTION METHOD CLEAN CATCH
[2023-08-08] MEDS ORDERED: Iohexol 300 - 100 ML VIAL IV ONE (14:31)
[2023-08-08] MEDS ORDERED: NS 100 ML IV SCH (14:32)
[2023-08-08 14:44] LABS: PH 6.5 (5.0-8.5); URINE APPEARANCE CLEAR (CLEAR/HAZY); URINE BLOOD NEGATIVE (NEGATIVE); URINE COLOR YELLOW (YELLOW); URINE GLUCOSE NEGATIVE (NEGATIVE); URINE KETONE NEGATIVE (NEGATIVE); URINE NITRATE NEGATIVE (NEGATIVE); URINE PROTEIN(semi-quant) NEGATIVE (NEGATIVE); URINE UROBILINOGEN 0.2 E.U/dL (0.2-1.0)
[2023-08-08 14:50] LABS: TRICYCLIC ANTIDEPRESS URINE NEGATIVE (NEGATIVE)
[2023-08-08] MEDS ORDERED: PREDNISONE50 MG PO (15:46)
[2023-08-08 15:49] VITALS: BP 111/83; PULSE 131
== END 2023-08-08 16:05 | disposition home or self-care (01) ==
LOC: COL.ER 12:58
PROVIDERS: Physician Assistant
DX: J45.901 Unspecified asthma with (acute) exacerbation (principal); Z71.6 Tobacco abuse counseling; Z91.040 Latex allergy status
CPT/HCPCS: J1100; J7030; Q9967

== ENCOUNTER 2023-08-21 07:07 | Emergency (ER) | payer MEDICAID ==
[~2023-08-21] VITALS: Ht 162.6 cm; Wt 68.2 kg
[~2023-08-21 07:07] MED LIST changes: +PREDNISONE50 MG PO
[2023-08-21 07:12] VITALS: TEMP 98.3
[2023-08-21] MEDS ORDERED: Albuterol/Ipratropium 3 MG-0.5 MG/3 ML Neb Soln IH ONE ×2 (07:30→08:45)
[2023-08-21] MEDS ORDERED: methylPREDNISolone Sod Succ 125 MG/2 ML VIAL IV ONE (07:45)
[2023-08-21 09:56] VITALS: BP 121/76; PULSE 116
== END 2023-08-21 09:56 | disposition home or self-care (01) ==
LOC: COL.ER 07:07
DX: J45.901 Unspecified asthma with (acute) exacerbation (principal); Z91.040 Latex allergy status
CPT/HCPCS: J2930; J3475

== ENCOUNTER 2023-08-31 05:03 | Emergency (ER) | payer MEDICAID ==
[~2023-08-31] VITALS: Ht 162.6 cm; Wt 68.2 kg
[2023-08-31 05:07] VITALS: TEMP 98.3
[2023-08-31] MEDS ORDERED: NS 1,000 ML IV ONE ×2 (05:15→06:30)
[2023-08-31] MEDS ORDERED: Magnesium Sulfate 4% 50 ML IV ONE (05:15)
[2023-08-31] MEDS ORDERED: Albuterol/Ipratropium 3 MG-0.5 MG/3 ML Neb Soln IH ONE ×2 (05:15)
[2023-08-31] MEDS ORDERED: methylPREDNISolone Sod Succ 125 MG/2 ML VIAL IV ONE (05:30)
[2023-08-31] MEDS ORDERED: Ondansetron 4 MG/2 ML VIAL IV ONE (05:30)
[2023-08-31] MEDS ORDERED: Levalbuterol Neb Soln 1.25 MG/3 ML UD IH ONE (06:30)
[2023-08-31] MEDS ORDERED: PREDNISONE50 MG PO (07:27)
[2023-08-31] MEDS ORDERED: Albuterol 0.083% Neb Soln 2.5 MG/3 ML UD IH ONE (08:30)
[2023-08-31 08:40] VITALS: BP 133/89; PULSE 18
== END 2023-08-31 09:08 | disposition home or self-care (01) ==
LOC: COL.ER 05:03
DX: J45.901 Unspecified asthma with (acute) exacerbation (principal); F17.210 Nicotine dependence, cigarettes, uncomplicated; F17.290 Nicotine dependence, other tobacco product, uncomplicated; Z91.040 Latex allergy status
CPT/HCPCS: J2405; J2930; J3475; J7030

== ENCOUNTER 2023-10-14 21:09 | Emergency (ER) | payer MEDICAID ==
[~2023-10-14] VITALS: Ht 162.6 cm; Wt 72.7 kg
[2023-10-14 21:15] VITALS: TEMP 98.4
[2023-10-14] MEDS ORDERED: Albuterol/Ipratropium 3 MG-0.5 MG/3 ML Neb Soln IH SCH (22:30)
[2023-10-14] MEDS ORDERED: predniSONE 20 MG TAB PO ONE (22:45)
[2023-10-14 23:39] VITALS: BP 112/70; PULSE 73
[2023-10-14] MEDS ORDERED: PREDNISONE20 MG PO (23:44)
== END 2023-10-14 23:48 | disposition home or self-care (01) ==
LOC: COL.ER 21:09
DX: J45.901 Unspecified asthma with (acute) exacerbation (principal); F17.290 Nicotine dependence, other tobacco product, uncomplicated; Z91.040 Latex allergy status; Z79.899 Other long term (current) drug therapy
CPT/HCPCS: J7512

== ENCOUNTER 2023-10-29 00:42 | Emergency (ER) | payer MEDICAID ==
[~2023-10-29] VITALS: Ht 162.6 cm; Wt 72.7 kg
[2023-10-29 00:50] VITALS: TEMP 97.1
[2023-10-29] MEDS ORDERED: predniSONE 20 MG TAB PO ONE (01:00)
[2023-10-29] MEDS ORDERED: Albuterol/Ipratropium 3 MG-0.5 MG/3 ML Neb Soln IH SCH (01:00)
[2023-10-29 01:58] VITALS: BP 121/73; PULSE 108
== END 2023-10-29 02:00 | disposition home or self-care (01) ==
LOC: COL.ER 00:42
DX: J45.901 Unspecified asthma with (acute) exacerbation (principal); Z87.891 Personal history of nicotine dependence; Z91.040 Latex allergy status
CPT/HCPCS: J7512